=== PATIENT | male | born 1995 | race American Indian/Alaskan Native ===

== ENCOUNTER 2019-09-30 19:38 | Emergency (ER) | payer SELFPAY ==
--- NOTE | 2019-09-30 20:32 | XRay Report ---
CHEST 1 VIEW INDICATION / CLINICAL INFORMATION: Chest Pain. COMPARISON: None available. FINDINGS: SUPPORT DEVICES: None. HEART / MEDIASTINUM: No significant abnormality. LUNGS / PLEURA: No significant pulmonary or pleural abnormality. No pneumothorax. ADDITIONAL FINDINGS: No significant additional findings. IMPRESSION: 1. No significant change Signer Name: Orlando Wagner MD Signed: 09/30/2019 8:28 PM Workstation Name: [id number]
--- NOTE | 2019-09-30 23:29 | Emergency Department Report ---
ED General Adult HPI - General Chief complaint: Chest Pain Stated complaint: CP Time Seen by Provider: 09/30/19 23:01 Source: patient Mode of arrival: Ambulatory Limitations: No Limitations - History of Present Illness Initial comments: Patient is a 24-year-old [place] male who is complaining of some left-sided anterior chest pain for approximately a week. Patient has had a cough that is nonproductive. Patient has mild shortness of breath. Patient states occasionally of hear a popping sound when he moves. Patient is a nonsmoker. Patient's denies fevers chills nausea vomiting or diarrhea. - Related Data Previous Rx's Medication Instructions Recorded Last Taken Type Albuterol INH(or & Nicu Only) 2 puff IH QID PRN #1 inhalation 09/30/19 Unknown Rx [ProAir HFA Inhaler] predniSONE [Deltasone] 20 mg PO QDAY #5 tab 09/30/19 Unknown Rx Allergies Allergy/AdvReac Type Severity Reaction Status Date / Time No Known Allergies Allergy Unverified 09/30/19 20:01 ED Review of Systems ROS: Stated complaint: CP Other details as noted in HPI Comment: All other systems reviewed and negative ED Past Medical Hx - Past Medical History Previous Medical History?: No - Surgical History Past Surgical History?: No - Social History Smoking Status: Never Smoker Substance Use Type: None - Medications Home Medications: Home Medications Medication Instructions Recorded Confirmed Last Taken Type Albuterol INH(or & Nicu Only) 2 puff IH QID PRN #1 inhalation 09/30/19 Unknown Rx [ProAir HFA Inhaler] predniSONE [Deltasone] 20 mg PO QDAY #5 tab 09/30/19 Unknown Rx ED Physical Exam - General Limitations: No Limitations General appearance: alert, in no apparent distress - Head Head exam: Present: atraumatic, normocephalic - Eye Eye exam: Present: normal appearance - ENT ENT exam: Present: mucous membranes moist - Neck Neck exam: Present: normal inspection - Respiratory Respiratory exam: Present: normal lung sounds bilaterally, chest wall tenderness (left sided). Absent: respiratory distress, wheezes, rales, rhonchi - Cardiovascular Cardiovascular Exam: Present: regular rate, normal rhythm, normal heart sounds. Absent: systolic murmur, diastolic murmur, rubs, gallop - GI/Abdominal GI/Abdominal exam: Present: soft, normal bowel sounds. Absent: distended, tenderness, guarding, rebound - Rectal Rectal exam: Present: deferred - Extremities Exam Extremities exam: Present: normal inspection - Back Exam Back exam: Present: normal inspection - Neurological Exam Neurological exam: Present: alert, oriented X3 - Psychiatric Psychiatric exam: Present: normal affect, normal mood - Skin Skin exam: Present: warm, dry, intact, normal color. Absent: rash ED Course Vital Signs 09/30/19 19:49 Temperature 97.7 F Pulse Rate 64 Respiratory 18 Rate Blood Pressure 128/85 O2 Sat by Pulse 100 Oximetry ED Medical Decision Making - Radiology Data Chest x-ray shows no acute process - Medical Decision Making Patient is 23-year-old -[place] male who is presenting with chest discomfort. Patient's had cough and likely has costochondritis. EKG shows sinus bradycardia with a rate of 53 with normal axis normal intervals no ST segment elevation making pericarditis less likely. Patient will be started on a short course of prednisone for the cough and inflammatory process with the chest wall be discharged home. Critical care attestation.: If time is entered above; I have spent that time in minutes in the direct care of this critically ill patient, excluding procedure time. ED Disposition Clinical Impression: Costochondral chest pain Acute bronchitis Qualifiers: Bronchitis organism: unspecified organism Qualified Code(s): J20.9 - Acute bronchitis, unspecified Disposition: - TO HOME OR SELFCARE Is pt being admited?: No Does the pt Need Aspirin: No Condition: Stable Instructions: Acute Bronchitis (ED), Costochondritis (ED) Referrals: TANMAY RODRÍGUEZ MD [Referring] - 3-5 Days Time of Disposition: 23:29
[2019-09-30 23:45] VITALS: BP 113/72
== END 2019-09-30 23:37 | disposition home or self-care (01) ==
LOC: ED 19:38
DX: J20.9 Acute bronchitis, unspecified (principal); R07.1 Chest pain on breathing; Z79.899 Other long term (current) drug therapy
CPT/HCPCS: 71045; 93005; 93010